=== PATIENT | male | born 1955 | race Caucasian/White ===

== ENCOUNTER 2022-08-28 09:46 | Outpatient (CLI) | payer MEDICARE, OTHER | END 2022-08-28 09:47 | disposition home or self-care (01) | LOC: CSHMRI 09:46 | PROVIDERS: ATTEND Nurse Practitioner Family | DX: M54.17 Radiculopathy, lumbosacral region (principal); M48.061 Spinal stenosis, lumbar region without neurogenic claudication | CPT/HCPCS: 72148 ==